=== PATIENT | female | born 1975 | race Two or more races ===

== ENCOUNTER → 2019-03-30 | Outpatient (REF) | payer BC ==
[2019-03-30 12:55] LABS: BASO % 0.3 % (0.0-1.0); EOS # 0.1 10^3/uL (0.0-0.50); EOS % 2.4 % (0.0-3.0); HEMOGLOBIN 13.6 g/dl (12.0-15.5); LYMPH # 2.2 10^3/uL (1.5-4.5); LYMPH % 37.8 % (24.0-44.0); MEAN CORPUSCULAR HEMOGLOBIN 30.3 pg (27.0-33.0); MEAN CORPUSCULAR HGB CONC 32.4 g/dl (32.0-36.5); MEAN CORPUSCULAR VOLUME 93.5 fl (80.0-96.0); MONO # 0.4 10^3/uL (0.0-0.8); MONO % 6.4 % (0.0-5.0); NEUTROPHILS % 52.9 % (36.0-66.0); PLATELET COUNT, AUTOMATED 229 10^3/uL (150-450); RED BLOOD COUNT 4.49 10^6/uL (4.00-5.40); WHITE BLOOD COUNT 5.8 10^3/uL (4.0-10.0)
[2019-03-30 13:07] LABS: ALBUMIN 3.6 GM/DL (3.2-5.2); ALT/SGPT 34 U/L (12-78); BILIRUBIN,TOTAL 0.4 MG/DL (0.2-1.0); BLOOD UREA NITROGEN 20 MG/DL (7-18); CALCIUM LEVEL 8.7 MG/DL (8.5-10.1); CARBON DIOXIDE LEVEL 28 MEQ/L (21-32); CHLORIDE LEVEL 109 MEQ/L (98-107); CHOLESTEROL LEVEL 171 MG/DL (<200); CREATININE FOR GFR 0.92 MG/DL (0.55-1.30); FREE T4 0.87 NG/DL (0.76-1.46); GLOMERULAR FILTRATION RATE > 60.0 (>58); GLUCOSE, FASTING 101 MG/DL (70-100); HDL CHOLESTEROL 74 MG/DL (>40); LDL CHOLESTEROL 87 MG/DL (<100); NON-HDL-C 97 MG/DL; POTASSIUM SERUM 4.6 MEQ/L (3.5-5.1); SODIUM LEVEL 142 MEQ/L (136-145); TOTAL PROTEIN 6.8 GM/DL (6.4-8.2); TRIGLYCERIDES LEVEL 52 MG/DL (<150)
== END ==
LOC: M SFHCADAM 08:06
PROVIDERS: ATTEND Family Medicine
DX: F41.8 Other specified anxiety disorders (principal); E66.01 Morbid (severe) obesity due to excess calories; Z68.41 Body mass index [BMI] 40.0-44.9, adult

== ENCOUNTER → 2020-02-15 | Outpatient (REF) | payer BC ==
[2020-02-15 17:25] LABS: ALBUMIN 3.9 GM/DL (3.2-5.2); ALT/SGPT 53 U/L (12-78); BILIRUBIN,TOTAL 0.3 MG/DL (0.2-1.0); BLOOD UREA NITROGEN 13 MG/DL (7-18); CALCIUM LEVEL 9.1 MG/DL (8.5-10.1); CARBON DIOXIDE LEVEL 29 MEQ/L (21-32); CHLORIDE LEVEL 106 MEQ/L (98-107); CHOLESTEROL LEVEL 194 MG/DL (<200); CHOLESTEROL RISK RATIO 3.031 (<5); CREATININE FOR GFR 0.83 MG/DL (0.55-1.30); GLOMERULAR FILTRATION RATE > 60.0 (>58); GLUCOSE, FASTING 90 MG/DL (70-100); HDL CHOLESTEROL 64 MG/DL (>40); LDL CHOLESTEROL 96 MG/DL (<100); NON-HDL-C 130 MG/DL; POTASSIUM SERUM 4.4 MEQ/L (3.5-5.1); SODIUM LEVEL 140 MEQ/L (136-145); TOTAL PROTEIN 7.2 GM/DL (6.4-8.2); TRIGLYCERIDES LEVEL 170 MG/DL (<150)
[2020-02-15 17:37] LABS: HEMOGLOBIN A1c 5.8 %
== END ==
LOC: M SFHCPLAZ 12:01
PROVIDERS: ATTEND Physician Assistant
DX: Z00.00 Encounter for general adult medical examination without abnormal findings (principal); Z13.220 Encounter for screening for lipoid disorders; Z13.1 Encounter for screening for diabetes mellitus

== ENCOUNTER → 2020-08-27 | Outpatient (CLI) | payer BC ==
--- NOTE | 2020-09-03 10:42 | REPMRS ---
Patient History The patient states she had a clinical breast exam in 08/2020. Family history of breast cancer at age 65 in mother, breast cancer at age 70 in maternal aunt. Taking hormonal contraceptives for 25 years. Digital Woman Screen Mammo: August 27, 2020 - Exam #: [id number] Bilateral CC and MLO view(s) were taken. Technologist: Norma Osorio, Technologist No prior studies available for comparison. FINDINGS: The breast tissue is almost entirely fat. The Volpara volumetric breast density category is: A. There is no evidence of dominant mass, architectural distortion, or grouped microcalcification typical of malignancy. 3-D tomosynthesis shows no additional findings. Assessment: BI-RADS/ACR category 1 mammogram. Negative Mammogram. Recommendation Breast MRI of both breasts in 6 months. Routine screening mammogram of both breasts in 1 year (for women over age 40). This patient's Lifetime Breast Cancer RIsk is estimated at 33.0 %. Annual screening Breast MRI scanniing is recommended for patient's whose lifetime risk assessment is over 20%. This mammogram was interpreted with the aid of an FDA-approved computer-aided dectection system. Electronically Signed By: Franklin Cisse MD 09/03/20 [id number]
== END ==
LOC: M WHC 15:15
PROVIDERS: ATTEND Advanced Practice Midwife
DX: Z12.31 Encounter for screening mammogram for malignant neoplasm of breast (principal); Z80.3 Family history of malignant neoplasm of breast

== ENCOUNTER → 2020-08-27 | Outpatient (CLI) | payer BC | LOC: M PLALAB 15:56 | PROVIDERS: ATTEND Advanced Practice Midwife | DX: Z15.09 Genetic susceptibility to other malignant neoplasm (principal); Z80.3 Family history of malignant neoplasm of breast ==

== ENCOUNTER → 2021-02-19 | Outpatient (REF) | payer BC ==
[2021-02-19 11:06] LABS: HEMATOCRIT 41.7 % (36.0-47.0); HEMOGLOBIN 13.8 g/dl (12.0-15.5); MEAN CORPUSCULAR HEMOGLOBIN 29.9 pg (27.0-33.0); MEAN CORPUSCULAR HGB CONC 33.1 g/dl (32.0-36.5); MEAN CORPUSCULAR VOLUME 90.5 fl (80.0-96.0); PLATELET COUNT, AUTOMATED 220 10^3/uL (150-450); RED BLOOD COUNT 4.61 10^6/uL (4.00-5.40); WHITE BLOOD COUNT 6.4 10^3/uL (4.0-10.0)
[2021-02-19 12:12] LABS: ALBUMIN 3.8 GM/DL (3.2-5.2); ALT/SGPT 38 U/L (12-78); BILIRUBIN,TOTAL 0.4 MG/DL (0.2-1.0); BLOOD UREA NITROGEN 16 MG/DL (7-18); CALCIUM LEVEL 8.9 MG/DL (8.5-10.1); CARBON DIOXIDE LEVEL 27 MEQ/L (21-32); CHLORIDE LEVEL 107 MEQ/L (98-107); CHOLESTEROL LEVEL 163 MG/DL (<200); CREATININE FOR GFR 0.89 MG/DL (0.55-1.30); GLOMERULAR FILTRATION RATE > 60.0 (>58); GLUCOSE, FASTING 91 MG/DL (70-100); HDL CHOLESTEROL 56 MG/DL (>40); LDL CHOLESTEROL 82 MG/DL (<100); NON-HDL-C 107 MG/DL; POTASSIUM SERUM 4.7 MEQ/L (3.5-5.1); SODIUM LEVEL 139 MEQ/L (136-145); TOTAL 25(OH) VITAMIN D 26.2 NG/ML (30.0-100.0); TRIGLYCERIDES LEVEL 127 MG/DL (<150)
[2021-02-19 13:06] LABS: HEMOGLOBIN A1c 5.5 %
[2021-02-20 15:07] LABS: H PYLORI SERUM QUANT IGM <9.0 units (0.0-8.9); H PYLORI SERUM QUANT IgG ABY 0.13 (0.00-0.79)
== END ==
LOC: M SFHCPLAZ 08:05
PROVIDERS: ATTEND Physician Assistant
DX: R73.01 Impaired fasting glucose (principal); Z13.220 Encounter for screening for lipoid disorders; R11.0 Nausea; R53.83 Other fatigue; R10.13 Epigastric pain

== ENCOUNTER → 2021-03-27 | Outpatient (REF) | payer BC | LOC: M SFHCPLAZ 13:10 | PROVIDERS: ATTEND Physician Assistant | DX: R30.0 Dysuria (principal) ==

== ENCOUNTER → 2021-04-01 | Outpatient (REF) | payer BC | LOC: M SFHCPLAZ 14:54 | PROVIDERS: ATTEND Physician Assistant | DX: R19.7 Diarrhea, unspecified (principal) ==

== ENCOUNTER → 2021-04-16 | Outpatient (CLI) | payer BC ==
[~2021-04-16] MED LIST: PROHANCE 279.3MG/ML 15ML VIAL As Ordered ONE; PROHANCE 279.3MG/ML 5ML VIAL As Ordered ONE
--- NOTE | 2021-04-16 12:50 | REP ---
INDICATION: HIGH RISK FOR BREAST CA. COMPARISON: Comparison mammography is from August 27, 2020. TECHNIQUE: Three Nisha MRI imaging was performed with a dedicated breast coil. Axial, coronal, and sagittal T1 and T2 weighted scans were obtained with and without fat saturation in the usual fashion. The study includes dynamically acquired post gadolinium-enhanced imaging with image subtraction. Maximum intensity projection and multi planar reformation imaging is included as well. This study is interpreted with the aid of SiTune, an FDA approved computer aided detection (CAD) software program, on a dedicated breast MRI workstation. The gadolinium enhancement dose is 20 mL of intravenous ProHance. FINDINGS: There is a minimal amount of fibroglandular tissue bilaterally corresponding with the mammographic pattern. There is minimal background parenchymal enhancement. There is no evidence of axillary lymphadenopathy or significant breast cystic change. High-resolution pre and post-contrast T1 and T2 weighted scans show no suspicious morphologic abnormality in either breast. Dynamically acquired sequential postcontrast images show no suspicious area of enhancement and washout kinetics in either breast to suggest malignancy. Subtraction images show no additional abnormality. IMPRESSION: BI-RADS category 1 negative bilateral breast MRI findings. <Electronically signed by Franklin Cisse > 04/16/21 [id number]
== END ==
LOC: M RAD 10:58
PROVIDERS: ATTEND Advanced Practice Midwife
DX: Z12.39 Encounter for other screening for malignant neoplasm of breast (principal)

== ENCOUNTER → 2021-04-29 | Outpatient (CLI) | payer BC ==
--- NOTE | 2021-04-29 11:39 | REP ---
INDICATION: PAIN IN LEFT HIP R/O LABRAL TEAR. COMPARISON: None. TECHNIQUE: Axial T1 and T2. Sagittal T2. Coronal T1, fat suppressed proton density, fat suppressed T2 and STIR. FINDINGS: The femoral heads are spherical in shape and symmetric in appearance. The hip joint spaces are symmetric and relatively well maintained. No abnormal focal increased or decreased signal is seen in the femoral or acetabular component of either hip. There is no hip joint effusion. The imaged portion of the SI joints show them to be within normal limits. There is no evidence of a mass or mass effect. The cortical and marrow signal seen throughout the pelvis is within normal limits. There is mild T2 hyper signal seen in the trochanteric tendono bursal region of each hip left greater than right. IMPRESSION: Mild to moderate bilateral trochanteric tendono bursitis left greater than right. <Electronically signed by Louis Cox > 04/29/21 [id number]
== END ==
LOC: M RAD 10:11
PROVIDERS: ATTEND Physician Assistant
DX: M71.551 Other bursitis, not elsewhere classified, right hip (principal); M71.552 Other bursitis, not elsewhere classified, left hip

== ENCOUNTER 2022-06-06 22:09 | Emergency (ER) | payer BC ==
[~2022-06-06] VITALS: Ht 170.2 cm; Wt 146.0 kg
[2022-06-06 22:10] VITALS: BP 138/72
[2022-06-06] MEDS ORDERED: PREG25CA PO (22:19)
[2022-06-06] MEDS ORDERED: FAMO10TA50 PO (22:19)
[2022-06-06] MEDS ORDERED: CITA20TA6 PO (22:19)
[2022-06-07] MEDS ORDERED: AMOX875T2 PO (19:37)
[2022-06-07] MEDS ORDERED: DIFL200T PO (19:38)
== END 2022-06-07 01:30 | disposition left against medical advice (07) ==
LOC: M ED 22:09
DX: Z53.21 Procedure and treatment not carried out due to patient leaving prior to being seen by health care provider (principal)

== ENCOUNTER 2022-06-07 13:37 | Emergency (ER) | payer BC ==
[~2022-06-07] VITALS: Ht 170.2 cm; Wt 144.9 kg
[~2022-06-07 13:37] MED LIST changes: +CITA20TA6 PO; +FAMO10TA50 PO; +PREG25CA PO; -PROHANCE 279.3MG/ML 15ML VIAL As Ordered ONE; -PROHANCE 279.3MG/ML 5ML VIAL As Ordered ONE
[2022-06-07 13:38] VITALS: BP 131/62
[2022-06-07 14:27] LABS: BASO % 0.4 % (0.0-1.0); EOS # 0.2 10^3/uL (0.0-0.5); EOS % 2.8 % (0.0-3.0); HEMATOCRIT 40.5 % (36.0-47.0); HEMOGLOBIN 13.7 g/dl (12.0-15.5); LYMPH # 2.7 10^3/uL (1.5-5.0); LYMPH % 35.8 % (24.0-44.0); MEAN CORPUSCULAR HEMOGLOBIN 30.8 pg (27.0-33.0); MEAN CORPUSCULAR HGB CONC 33.8 g/dl (32.0-36.5); MONO # 0.6 10^3/uL (0.0-0.8); MONO % 7.6 % (2.0-8.0); NEUTROPHILS % 53.1 % (36.0-66.0); PLATELET COUNT, AUTOMATED 211 10^3/uL (150-450); RED BLOOD COUNT 4.45 10^6/uL (4.00-5.40); WHITE BLOOD COUNT 7.5 10^3/uL (4.0-10.0)
[2022-06-07 14:56] LABS: HCG, SERUM QUALITATIVE NEGATIVE (NEGATIVE)
[2022-06-07 15:04] LABS: ALBUMIN 3.8 GM/DL (3.2-5.2); ALT/SGPT 36 U/L (12-78); BILIRUBIN,DIRECT 0.1 MG/DL (0.0-0.2); BILIRUBIN,TOTAL 0.6 MG/DL (0.2-1.0); BLOOD UREA NITROGEN 12 MG/DL (7-18); CALCIUM LEVEL 8.8 MG/DL (8.5-10.1); CARBON DIOXIDE LEVEL 25 MEQ/L (21-32); CHLORIDE LEVEL 111 MEQ/L (98-107); CREATININE FOR GFR 0.91 MG/DL (0.55-1.30); GLOMERULAR FILTRATION RATE > 60.0 (>58); GLUCOSE, FASTING 98 MG/DL (70-100); LIPASE 86 U/L (73-393); POTASSIUM SERUM 4.4 MEQ/L (3.5-5.1); SODIUM LEVEL 143 MEQ/L (136-145)
[2022-06-07] MEDS ORDERED: ISOVUE-370 76% 100ML VIAL As Ordered ONE (18:14)
[2022-06-07] MEDS ORDERED: AUGMENTIN 875 MG TAB PO ONE (19:35)
[2022-06-07] MEDS ORDERED: AMOX875T2 PO (19:37)
[2022-06-07] MEDS ORDERED: DIFL200T PO (19:38)
== END 2022-06-07 20:05 | disposition home or self-care (01) ==
LOC: M ED 13:37
DX: K35.80 Unspecified acute appendicitis (principal); G89.29 Other chronic pain; M54.9 Dorsalgia, unspecified; K21.9 Gastro-esophageal reflux disease without esophagitis; F41.9 Anxiety disorder, unspecified; Z79.899 Other long term (current) drug therapy
CPT/HCPCS: 36415; 74177; 80048; 80076; 81001; 83690; 84703; 85025; 87088; 87186; 99284; Q9967

== ENCOUNTER → 2022-06-16 | Outpatient (CLI) | payer BC ==
[~2022-06-16] MED LIST changes: +AMOX875T2 PO; +DIFL200T PO
[2022-06-16 13:38] LABS: APPEARANCE, URINE CLEAR (CLEAR); BACTERIA, URINE AUTO NEGATIVE (NEGATIVE); BILIRUBIN, URINE AUTO NEGATIVE (NEGATIVE); BLOOD, URINE BLOOD NEGATIVE (NEGATIVE); COLOR, URINE YELLOW (YELLOW); GLUCOSE, URINE (UA) AUTO NEGATIVE (NEGATIVE); KETONE, URINE AUTO NEGATIVE (NEGATIVE); LEUKOCYTE ESTERASE, URINE AUTO NEGATIVE (NEGATIVE); NITRITE, URINE AUTO NEGATIVE (NEGATIVE); PROTEIN, URINE AUTO NEGATIVE (NEGATIVE); RBC, URINE AUTO 2 /HPF (0-3); SPECIFIC GRAVITY URINE AUTO 1.014 (1.002-1.035); SQUAMOUS EPITHELIAL CELL UR AU 1 /HPF (0-6); UROBILINOGEN, URINE AUTO 0.2 mg/dL (0.0-2.0); WBC, URINE AUTO 2 /HPF (0-3)
[2022-06-16 15:23] LABS: BASO % 0.4 % (0.0-1.0); EOS # 0.2 10^3/uL (0.0-0.5); EOS % 2.9 % (0.0-3.0); HEMATOCRIT 40.5 % (36.0-47.0); HEMOGLOBIN 13.6 g/dl (12.0-15.5); LYMPH # 2.6 10^3/uL (1.5-5.0); LYMPH % 46.2 % (24.0-44.0); MEAN CORPUSCULAR HEMOGLOBIN 31.1 pg (27.0-33.0); MEAN CORPUSCULAR HGB CONC 33.6 g/dl (32.0-36.5); MEAN CORPUSCULAR VOLUME 92.7 fl (80.0-96.0); MONO # 0.4 10^3/uL (0.0-0.8); MONO % 6.3 % (2.0-8.0); NEUTROPHILS # 2.5 10^3/uL (1.5-8.5); NEUTROPHILS % 43.8 % (36.0-66.0); PLATELET COUNT, AUTOMATED 210 10^3/uL (150-450); RED BLOOD COUNT 4.37 10^6/uL (4.00-5.40); WHITE BLOOD COUNT 5.6 10^3/uL (4.0-10.0)
[2022-06-16 15:56] LABS: ALBUMIN 3.8 GM/DL (3.2-5.2); ALT/SGPT 42 U/L (12-78); BILIRUBIN,TOTAL 0.6 MG/DL (0.2-1.0); BLOOD UREA NITROGEN 12 MG/DL (7-18); CALCIUM LEVEL 9.1 MG/DL (8.5-10.1); CARBON DIOXIDE LEVEL 24 MEQ/L (21-32); CHLORIDE LEVEL 109 MEQ/L (98-107); CREATININE FOR GFR 0.83 MG/DL (0.55-1.30); GLOMERULAR FILTRATION RATE > 60.0 (>58); GLUCOSE, FASTING 81 MG/DL (70-100); NT-PRO BNP 35 PG/ML (<125); SODIUM LEVEL 139 MEQ/L (136-145); TOTAL PROTEIN 6.8 GM/DL (6.4-8.2)
== END ==
LOC: M PLALAB 11:33
PROVIDERS: ATTEND Physician Assistant
DX: K35.30 Acute appendicitis with localized peritonitis, without perforation or gangrene (principal); R60.9 Edema, unspecified; R35.0 Frequency of micturition

== ENCOUNTER → 2022-07-15 | Outpatient (CLI) | payer BC | LOC: M WHC 11:28 | PROVIDERS: ATTEND Advanced Practice Midwife | DX: Z12.31 Encounter for screening mammogram for malignant neoplasm of breast (principal) ==

== ENCOUNTER → 2022-07-15 | Outpatient (REF) | payer BC | LOC: M PLALAB 10:18 | PROVIDERS: ATTEND Advanced Practice Midwife | DX: Z12.4 Encounter for screening for malignant neoplasm of cervix (principal); R87.610 Atypical squamous cells of undetermined significance on cytologic smear of cervix (ASC-US) | CPT/HCPCS: 87624; G0123 ==

== ENCOUNTER → 2022-07-27 | Outpatient (CLI) | payer BC | LOC: M PLALAB 14:54 | PROVIDERS: ATTEND Physician Assistant | DX: R68.82 Decreased libido (principal) ==

== ENCOUNTER → 2022-11-02 | Outpatient (CLI) | payer BC ==
[~2022-11-02] MED LIST changes: +ALEV220T22 PO; +BUPR1TAB52 PO; +CETI-14 PO; +FAMO20TA5 PO; +GASTROGRAFIN SOLUTION 30ML As Ordered ONE; +ISOVUE-370 76% 100ML VIAL As Ordered ONE; +LEXA1TAB2 PO; +OXYC1TAB23 PO; +PREG75CA2 PO
== END ==
LOC: M RAD 15:04
PROVIDERS: ATTEND Physician Assistant
DX: R10.31 Right lower quadrant pain (principal)

== ENCOUNTER 2022-11-03 13:01 | Day surgery (SDC) | payer BC ==
[~2022-11-03] VITALS: Ht 170.2 cm; Wt 134.3 kg
[~2022-11-03 13:01] MED LIST changes: -ALEV220T22 PO; -BUPR1TAB52 PO; -CETI-14 PO; -FAMO20TA5 PO; -GASTROGRAFIN SOLUTION 30ML As Ordered ONE; -ISOVUE-370 76% 100ML VIAL As Ordered ONE; -LEXA1TAB2 PO; -OXYC1TAB23 PO; -PREG75CA2 PO
[2022-11-03] MEDS ORDERED: BUPR1TAB52 PO (13:25)
[2022-11-03] MEDS ORDERED: FAMO20TA5 PO (13:25)
[2022-11-03] MEDS ORDERED: PREG75CA2 PO (13:25)
[2022-11-03] MEDS ORDERED: LEXA1TAB2 PO (13:25)
[2022-11-03] MEDS ORDERED: NS 1,000 ML IV SCH (13:50)
[2022-11-03] MEDS ORDERED: PIPERACILLIN/TAZOBACTAM SOD 4.5 GM in D5W MINI-BAG PLUS 50 ML IV ONE (13:55)
[2022-11-03 14:40] LABS: BASO % 0.4 % (0.0-1.0); EOS # 0.2 10^3/uL (0.0-0.5); EOS % 3.1 % (0.0-3.0); HEMATOCRIT 43.8 % (36.0-47.0); HEMOGLOBIN 15.3 g/dl (12.0-15.5); LYMPH # 2.7 10^3/uL (1.5-5.0); LYMPH % 38.3 % (24.0-44.0); MEAN CORPUSCULAR HEMOGLOBIN 31.9 pg (27.0-33.0); MEAN CORPUSCULAR HGB CONC 34.9 g/dl (32.0-36.5); MEAN CORPUSCULAR VOLUME 91.4 fl (80.0-96.0); MONO # 0.4 10^3/uL (0.0-0.8); MONO % 5.7 % (2.0-8.0); NEUTROPHILS # 3.6 10^3/uL (1.5-8.5); NEUTROPHILS % 52.2 % (36.0-66.0); PLATELET COUNT, AUTOMATED 236 10^3/uL (150-450); RED BLOOD COUNT 4.79 10^6/uL (4.00-5.40)
[2022-11-03] MEDS ORDERED: CETI-14 PO (14:52)
[2022-11-03] MEDS ORDERED: ALEV220T22 PO (14:53)
[2022-11-03 14:54] LABS: LIPASE 28 U/L (12-53)
[2022-11-03] MEDS ORDERED: HOME MED LIST COMPLETE! XX SCH (14:55)
[2022-11-03 14:56] LABS: BILIRUBIN,DIRECT 0.1 MG/DL (<0.4)
[2022-11-03 14:58] LABS: ALKALINE PHOSPHATASE 110 U/L (46-116); ALT/SGPT 26 U/L (7.0-40); AST/SGOT 20 U/L (<34); BILIRUBIN,TOTAL 0.4 MG/DL (0.3-1.2); BLOOD UREA NITROGEN 21 MG/DL (9-23); CALCIUM LEVEL 8.8 MG/DL (8.5-10.1); CARBON DIOXIDE LEVEL 26 MMOL/L (20-31); CHLORIDE LEVEL 106 MMOL/L (98-107); CREATININE FOR GFR 0.88 MG/DL (0.55-1.30); GLOMERULAR FILTRATION RATE > 60.0 (>58); GLUCOSE, FASTING 86 MG/DL (60-100); POTASSIUM SERUM 3.9 MMOL/L (3.5-5.1); SODIUM LEVEL 140 MMOL/L (136-145); TOTAL PROTEIN 7.3 G/DL (5.7-8.2)
[2022-11-03 15:08] LABS: RSV AMPLIFICATION NEGATIVE (NEGATIVE)
[2022-11-03] MEDS ORDERED: LIDOCAINE 2% INJ 100 MG/5 ML SYRINGE As Ordered ONE ×2 (15:10→15:15)
[2022-11-03] MEDS ORDERED: MIDAZOLAM INJ 2MG/2ML VIAL (J2250 PER 1MG) As Ordered ONE ×2 (15:10→16:49)
[2022-11-03] MEDS ORDERED: propofoL 200 MG/20 ML VIAL As Ordered ONE ×2 (15:10→16:45)
[2022-11-03] MEDS ORDERED: fentaNYL 100 MCG/2 ML INJECTION As Ordered ONE (15:10)
[2022-11-03] MEDS ORDERED: ROCURONIUM BROMIDE 50MG/5ML VIAL As Ordered ONE ×2 (15:10→16:45)
[2022-11-03] MEDS ORDERED: ONDANSETRON 4MG 2ML VIAL As Ordered ONE ×2 (15:10→16:45)
[2022-11-03] MEDS ORDERED: LIDOCAINE 2% 100MG/5ML SDV (FOR ANES.) As Ordered ONE ×2 (15:15→16:45)
[2022-11-03] MEDS ORDERED: SUGAMMADEX SODIUM 500 MG/5 ML VIAL (BRIDION) As Ordered ONE ×2 (15:16→17:49)
[2022-11-03] MEDS ORDERED: LIDOCAINE 1% SDV 30ML VIAL As Ordered ONE (16:44)
[2022-11-03] MEDS ORDERED: BUPIVACAINE/EPIN 0.25% 30ML VIAL As Ordered ONE (16:44)
[2022-11-03] MEDS ORDERED: BUPIVACAINE HCL 0.25% 30ML VIAL As Ordered ONE (16:45)
[2022-11-03] MEDS ORDERED: fentaNYL 250 MCG/5 ML INJECTION As Ordered ONE (16:50)
[2022-11-03] MEDS ORDERED: KETOROLAC 60MG 2ML VIAL As Ordered ONE (16:51)
[2022-11-03] MEDS ORDERED: METOCLOPRAMIDE INJ 10MG/2ML VIAL As Ordered ONE (17:49)
[2022-11-03] MEDS ORDERED: HYDROmorphone HCL 2MG/ML 1ML VIAL As Ordered ONE (17:50)
[2022-11-03] MEDS ORDERED: ACETAMINOPHEN 1000MG 100ML IV BAG As Ordered ONE (17:57)
[2022-11-03] MEDS ORDERED: oxyCODONE 5MG TAB PO PRN (18:10)
[2022-11-03] MEDS ORDERED: LR 1,000 ML IV SCH (18:10)
[2022-11-03] MEDS ORDERED: ONDANSETRON 4MG 2ML VIAL IV PRN (18:10)
[2022-11-03] MEDS ORDERED: fentaNYL 100 MCG/2 ML INJECTION IV PRN (18:10)
[2022-11-03] MEDS ORDERED: HYDROMORPHONE HCL 0.5 MG/ 0.5 ML SYRINGE (J1170 PER 1) IV PRN (18:10)
[2022-11-03] MEDS ORDERED: METOCLOPRAMIDE INJ 10MG/2ML VIAL IV PRN (18:10)
[2022-11-03] MEDS ORDERED: OXYC1TAB23 PO (18:17)
[2022-11-03 18:59] VITALS: BP 135/62
== END 2022-11-03 19:39 | disposition home or self-care (01) ==
LOC: M ED 13:01 → M SDC 15:19
PROVIDERS: ATTEND Surgery
DX: K35.80 Unspecified acute appendicitis (principal); K21.9 Gastro-esophageal reflux disease without esophagitis; M54.50 Low back pain, unspecified; F41.9 Anxiety disorder, unspecified; Z79.899 Other long term (current) drug therapy
CPT/HCPCS: 44970; 80048; 80076; 83690; 85025; 87631; 88304; 93005; 93041; 99285; J0131; J1100; J1170; J1885; J2250; J2405; J2543; J2765; J3010

== ENCOUNTER → 2022-11-19 | Outpatient (REF) | payer BC ==
[~2022-11-19] MED LIST changes: +ALEV220T22 PO; +BUPR1TAB52 PO; +CETI-14 PO; +FAMO20TA5 PO; +LEXA1TAB2 PO; +OXYC1TAB23 PO; +PREG75CA2 PO
== END ==
LOC: M SFHCPLAZ 17:13
PROVIDERS: ATTEND Physician Assistant
DX: R30.0 Dysuria (principal)

== ENCOUNTER → 2022-12-28 | Outpatient (REF) | payer BC ==
[2022-12-28 19:12] LABS: APPEARANCE, URINE MANUAL HAZY (CLEAR)
[2022-12-28 19:13] LABS: BILIRUBIN, URINE MANUAL NEGATIVE (NEGATIVE); COLOR, URINE MANUAL LT YELLOW (YELLOW); GLUCOSE, URINE (UA) MANUAL NEGATIVE (NEGATIVE); KETONE, URINE MANUAL NEGATIVE (NEGATIVE); LEUKOCYTE ESTERASE, URINE MAN POSITIVE (NEGATIVE); NITRITE, URINE MANUAL POSITIVE (NEGATIVE); PH,URINE MAN 7.5 UNITS (5.0 - 7.0); PROTEIN, URINE MANUAL TRACE mg/dL (NEGATIVE); SPECIFIC GRAVITY,URINE MANUAL 1.015 (1.002-1.035); UROBILINOGEN, URINE MANUAL NORMAL (NORMAL)
[2022-12-28 19:14] LABS: BLOOD URINE MANUAL POSITIVE (NEGATIVE)
[2022-12-28 20:07] LABS: WBC, URINE TNTC /hpf (0-3)
[2022-12-28 20:09] LABS: BACTERIA, URINE LARGE AMOUNT; SQUAMOUS EPITHELIAL CELL URINE SMALL AMOUNT /hpf (SMALL AMT)
[2022-12-28 20:10] LABS: AMORPHOUS SEDIMENT, URINE SMALL AMOUNT (NEGATIVE); HYALINE CAST, URINE NONE SEEN /lpf (0-1)
== END ==
LOC: M SFHCPLAZ 16:58
PROVIDERS: ATTEND Physician Assistant
DX: N30.01 Acute cystitis with hematuria (principal)

== ENCOUNTER → 2023-01-13 | Outpatient (CLI) | payer BC ==
[~2023-01-13] MED LIST changes: +PROHANCE 279.3MG/ML 15ML VIAL ONE; +PROHANCE 279.3MG/ML 5ML VIAL ONE
== END ==
LOC: M PLAIMG 12:41
PROVIDERS: ATTEND Advanced Practice Midwife
DX: Z91.89 Other specified personal risk factors, not elsewhere classified (principal); Z12.31 Encounter for screening mammogram for malignant neoplasm of breast

== ENCOUNTER → 2023-05-13 | Outpatient (REF) | payer BC ==
[~2023-05-13] MED LIST changes: -PROHANCE 279.3MG/ML 15ML VIAL ONE; -PROHANCE 279.3MG/ML 5ML VIAL ONE
== END ==
LOC: M SFHCPLAZ 13:13
PROVIDERS: ATTEND Physician Assistant
DX: R39.9 Unspecified symptoms and signs involving the genitourinary system (principal)

== ENCOUNTER → 2023-07-13 | Outpatient (CLI) | payer BC ==
[2023-07-13 15:02] LABS: HEMATOCRIT 42.4 % (36.0-47.0); HEMOGLOBIN 13.8 g/dl (12.0-15.5); MEAN CORPUSCULAR HEMOGLOBIN 30.4 pg (27.0-33.0); MEAN CORPUSCULAR HGB CONC 32.5 g/dl (32.0-36.5); MEAN CORPUSCULAR VOLUME 93.4 fl (80.0-96.0); PLATELET COUNT, AUTOMATED 222 10^3/uL (150-450); RED BLOOD COUNT 4.54 10^6/uL (4.00-5.40); WHITE BLOOD COUNT 5.1 10^3/uL (4.0-10.0)
[2023-07-13 15:24] LABS: BLOOD UREA NITROGEN 22 MG/DL (9-23); CALCIUM LEVEL 9.1 MG/DL (8.5-10.1); CARBON DIOXIDE LEVEL 26 MMOL/L (20-31); CHLORIDE LEVEL 107 MMOL/L (98-107); CREATININE FOR GFR 0.87 MG/DL (0.55-1.30); GLOMERULAR FILTRATION RATE > 60.0 (>58); GLUCOSE, FASTING 102 MG/DL (60-100); POTASSIUM SERUM 4.8 MMOL/L (3.5-5.1); SODIUM LEVEL 141 MMOL/L (136-145)
== END ==
LOC: M PLALAB 09:05
PROVIDERS: ATTEND Internal Medicine Hematology
DX: Z01.818 Encounter for other preprocedural examination (principal)

== ENCOUNTER 2023-08-25 16:50 | Emergency (ER) | payer BC ==
[~2023-08-25] VITALS: Ht 170.2 cm; Wt 134.8 kg
[~2023-08-25 16:50] MED LIST changes: -PREG75CA2 PO; +PREG75CA3 PO
[2023-08-25] MEDS ORDERED: OMEP40CA5 (16:57)
[2023-08-25] MEDS ORDERED: VITMTA PO (16:57)
[2023-08-25] MEDS ORDERED: B-12100021 PO (16:57)
[2023-08-25] MEDS ORDERED: VITA200012 PO (16:57)
[2023-08-25] MEDS ORDERED: OYST1TAB PO (16:57)
[2023-08-25 17:36] LABS: BASO % 0.6 % (0.0-1.0); EOS # 0.2 10^3/uL (0.0-0.5); EOS % 4.5 % (0.0-3.0); HEMATOCRIT 39.8 % (36.0-47.0); HEMOGLOBIN 13.5 g/dl (12.0-15.5); LYMPH # 2.4 10^3/uL (1.5-5.0); MEAN CORPUSCULAR HGB CONC 33.9 g/dl (32.0-36.5); MEAN CORPUSCULAR VOLUME 91.5 fl (80.0-96.0); MONO # 0.5 10^3/uL (0.0-0.8); MONO % 8.4 % (2.0-8.0); NEUTROPHILS # 2.3 10^3/uL (1.5-8.5); NEUTROPHILS % 42.3 % (36.0-66.0); PLATELET COUNT, AUTOMATED 223 10^3/uL (150-450); RED BLOOD COUNT 4.35 10^6/uL (4.00-5.40); WHITE BLOOD COUNT 5.4 10^3/uL (4.0-10.0)
[2023-08-25 17:55] LABS: LIPASE 33 U/L (12-53)
[2023-08-25 17:57] LABS: ALKALINE PHOSPHATASE 112 U/L (46-116); ALT/SGPT 39 U/L (7.0-40); AST/SGOT 27 U/L (<34); BILIRUBIN,DIRECT 0.2 MG/DL (<0.4); BILIRUBIN,TOTAL 0.4 MG/DL (0.3-1.2); BLOOD UREA NITROGEN 13 MG/DL (9-23); CALCIUM LEVEL 9.2 MG/DL (8.5-10.1); CARBON DIOXIDE LEVEL 27 MMOL/L (20-31); CHLORIDE LEVEL 109 MMOL/L (98-107); CREATININE FOR GFR 0.86 MG/DL (0.55-1.30); GLOMERULAR FILTRATION RATE > 60.0 (>58); GLUCOSE, FASTING 81 MG/DL (60-100); POTASSIUM SERUM 4.4 MMOL/L (3.5-5.1); SODIUM LEVEL 143 MMOL/L (136-145); TOTAL PROTEIN 6.7 G/DL (5.7-8.2)
[2023-08-25 18:11] LABS: HCG, SERUM QUALITATIVE NEGATIVE (NEGATIVE)
[2023-08-25] MEDS ORDERED: ACETAMINOPHEN *IV* 1,000 MG in IV 1 EA IV ONE (19:50)
[2023-08-25] MEDS ORDERED: ISOVUE-370 76% 100ML VIAL As Ordered ONE (20:06)
[2023-08-25] MEDS: GASTROGRAFIN SOLUTION 30ML PO SCH ×2 (20:12→20:58)
[2023-08-25 21:00] VITALS: BP 131/66; TEMP 98.1; O2SAT 99
[2023-08-26] MEDS ORDERED: MILKSUS3 PO (00:06)
[2023-08-26] MEDS ORDERED: MOM 30ML SUSPENSION UDC PO ONE (00:10)
[2023-08-26] MEDS ORDERED: NITROFURANTOIN (MACROBID) 100 MG CAP PO ONE (00:25)
== END 2023-08-26 00:49 | disposition home or self-care (01) ==
LOC: M ED 16:50
DX: R10.9 Unspecified abdominal pain (principal); K59.00 Constipation, unspecified; N39.0 Urinary tract infection, site not specified; K21.9 Gastro-esophageal reflux disease without esophagitis; M54.9 Dorsalgia, unspecified; Z79.899 Other long term (current) drug therapy
CPT/HCPCS: 74177; 80048; 80076; 81001; 83690; 84703; 85025; 87086; 96374; 99284; J0131; Q9963; Q9967

== ENCOUNTER → 2023-11-02 | Outpatient (CLI) | payer BC ==
[~2023-11-02] MED LIST changes: +B-12100021 PO; +MILKSUS3 PO; +OMEP40CA5; +OYST1TAB PO; +VITA200012 PO; +VITMTA PO
== END ==
LOC: M WHC 13:17
PROVIDERS: ATTEND Advanced Practice Midwife
DX: Z12.31 Encounter for screening mammogram for malignant neoplasm of breast (principal)

== ENCOUNTER → 2024-06-06 | Outpatient (CLI) | payer BC ==
[2024-06-06 11:56] LABS: BASO % 0.6 % (0.0-1.0); EOS # 0.1 10^3/uL (0.0-0.5); EOS % 2.4 % (0.0-3.0); HEMATOCRIT 40.4 % (36.0-47.0); HEMOGLOBIN 13.6 g/dl (12.0-15.5); LYMPH # 2.2 10^3/uL (1.5-5.0); LYMPH % 44.5 % (24.0-44.0); MEAN CORPUSCULAR HEMOGLOBIN 30.8 pg (27.0-33.0); MEAN CORPUSCULAR HGB CONC 33.7 g/dl (32.0-36.5); MEAN CORPUSCULAR VOLUME 91.4 fl (80.0-96.0); MONO # 0.4 10^3/uL (0.0-0.8); MONO % 7.4 % (2.0-8.0); NEUTROPHILS # 2.2 10^3/uL (1.5-8.5); NEUTROPHILS % 44.9 % (36.0-66.0); PLATELET COUNT, AUTOMATED 183 10^3/uL (150-450); RED BLOOD COUNT 4.42 10^6/uL (4.00-5.40)
[2024-06-06 12:10] LABS: HEMOGLOBIN A1c 5.1 % (4.0-6.0)
[2024-06-06 12:32] LABS: FERRITIN 96.6 NG/ML (7.3-270.7)
[2024-06-06 12:33] LABS: TOTAL 25(OH) VITAMIN D 61.2 NG/ML (20.0-100.0)
[2024-06-06 12:34] LABS: FOLATE 15.2 NG/ML (>5.4); LUTEINIZING HORMONE 32.4 mIU/ML; THYROID STIMULATING HORMONE 1.363 uIU/ML (0.55-4.78)
[2024-06-06 12:35] LABS: FREE T4 0.93 NG/DL (0.89-1.76); IRON (FE) 91 UG/DL (50-170); PERCENT SATURATION 28.6 % (13.2-45.0); TOTAL IRON BINDING CAPACITY 318 UG/DL (250-425)
[2024-06-06 12:36] LABS: ALBUMIN 3.8 G/DL (3.2-5.2); ALKALINE PHOSPHATASE 114 U/L (46-116); ALT/SGPT 22 U/L (7.0-40); AST/SGOT 8 U/L (<34); BILIRUBIN,TOTAL 0.5 MG/DL (0.3-1.2); BLOOD UREA NITROGEN 16 MG/DL (9-23); CARBON DIOXIDE LEVEL 27 MMOL/L (20-31); CHLORIDE LEVEL 111 MMOL/L (98-107); CHOLESTEROL LEVEL 179 MG/DL (<200); CHOLESTEROL RISK RATIO 3.24 (<5); CREATININE FOR GFR 0.84 MG/DL (0.55-1.30); GLOMERULAR FILTRATION RATE > 60.0 (>58); GLUCOSE, FASTING 88 MG/DL (60-100); HDL CHOLESTEROL 55.1 MG/DL (>40); LDL CHOLESTEROL 107.5 MG/DL (<100); MAGNESIUM LEVEL 2.2 MG/DL (1.8-2.4); NON-HDL-C 123.9 MG/DL; POTASSIUM SERUM 4.4 MMOL/L (3.5-5.1); SODIUM LEVEL 145 MMOL/L (136-145); TOTAL PROTEIN 6.2 G/DL (5.7-8.2); TRIGLYCERIDES LEVEL 82 MG/DL (<150); VITAMIN B12 LEVEL 618 PG/ML (211-911)
[2024-06-11 20:58] LABS: TESTOSTERONE FREE (DIRECT) 1.8 pg/mL (0.1-6.4)
== END ==
LOC: M PLALAB 07:20
PROVIDERS: ATTEND Physician Assistant
DX: Z00.00 Encounter for general adult medical examination without abnormal findings (principal)

== ENCOUNTER → 2024-06-21 | Outpatient (CLI) | payer BC ==
[2024-06-21 15:46] LABS: BASO % 0.3 % (0.0-1.0); EOS # 0.2 10^3/uL (0.0-0.5); EOS % 2.6 % (0.0-3.0); HEMATOCRIT 38.6 % (36.0-47.0); HEMOGLOBIN 13.4 g/dl (12.0-15.5); LYMPH # 2.8 10^3/uL (1.5-5.0); MEAN CORPUSCULAR HEMOGLOBIN 31.9 pg (27.0-33.0); MEAN CORPUSCULAR HGB CONC 34.7 g/dl (32.0-36.5); MEAN CORPUSCULAR VOLUME 91.9 fl (80.0-96.0); MONO # 0.4 10^3/uL (0.0-0.8); NEUTROPHILS # 2.5 10^3/uL (1.5-8.5); NEUTROPHILS % 42.9 % (36.0-66.0); PLATELET COUNT, AUTOMATED 177 10^3/uL (150-450); WHITE BLOOD COUNT 5.9 10^3/uL (4.0-10.0)
== END ==
LOC: M PLALAB 13:45
PROVIDERS: ATTEND Physician Assistant
DX: R79.89 Other specified abnormal findings of blood chemistry (principal)

== ENCOUNTER 2024-07-12 09:30 | Day surgery (SDC) | payer BC ==
[~2024-07-12] VITALS: Ht 170.2 cm; Wt 105.1 kg
[~2024-07-12 09:30] MED LIST changes: +BUPR1TAB56 PO; +MULTTAB61 PO; +NS 1,000 ML IV ONE; -OMEP40CA5; +OMEP40CA5 PO; +propofoL 200 MG/20 ML VIAL As Ordered ONE
[2024-07-12 12:28] VITALS: BP 130/62; O2SAT 99
== END 2024-07-12 12:28 | disposition home or self-care (01) ==
LOC: M OPP 09:30
PROVIDERS: ATTEND Surgery
DX: Z12.11 Encounter for screening for malignant neoplasm of colon (principal); D12.5 Benign neoplasm of sigmoid colon; G47.9 Sleep disorder, unspecified; Z79.84 Long term (current) use of oral hypoglycemic drugs; Z79.899 Other long term (current) drug therapy; Z91.048 Other nonmedicinal substance allergy status

== ENCOUNTER → 2024-07-16 | Outpatient (CLI) | payer BC ==
[~2024-07-16] MED LIST changes: -NS 1,000 ML IV ONE; -propofoL 200 MG/20 ML VIAL As Ordered ONE
== END ==
LOC: M PLALAB 10:23
PROVIDERS: ATTEND Physician Assistant
DX: R79.89 Other specified abnormal findings of blood chemistry (principal)

== ENCOUNTER → 2024-11-08 | Outpatient (CLI) | payer BC | LOC: M WHC 08:52 | PROVIDERS: ATTEND Advanced Practice Midwife | DX: Z12.31 Encounter for screening mammogram for malignant neoplasm of breast (principal) ==

== ENCOUNTER → 2025-01-01 | Outpatient (CLI) | payer BC ==
[2025-01-01 14:38] LABS: C REACTIVE PROTEIN QUANTITATIV 1.2 MG/DL (<1.0)
[2025-01-01 15:36] LABS: RHEUMATOID FACTOR QUANT 7.2 IU/ML (<14)
== END ==
LOC: M PLALAB 10:12
PROVIDERS: ATTEND Nurse Practitioner Family
DX: R53.83 Other fatigue (principal)

== ENCOUNTER → 2025-02-07 | Outpatient (CLI) | payer BC | LOC: M PLAIMG 10:23 | PROVIDERS: ATTEND Nurse Practitioner Family | DX: M16.0 Bilateral primary osteoarthritis of hip (principal); S73.192A Other sprain of left hip, initial encounter; M85.68 Other cyst of bone, other site; M70.62 Trochanteric bursitis, left hip; N32.89 Other specified disorders of bladder ==

== ENCOUNTER → 2025-03-28 | Outpatient (CLI) | payer BC ==
[~2025-03-28] MED LIST changes: +BUPR-670 PO; -BUPR1TAB52 PO; -BUPR1TAB56 PO; +BUPR200T45 PO; -PREG25CA PO; +PREG25CA63 PO
[2025-03-28 14:04] LABS: ESTRADIOL 29.2 PG/ML; THYROID STIMULATING HORMONE 1.559 uIU/ML (0.55-4.78)
[2025-03-28 14:06] LABS: FREE T4 1.05 NG/DL (0.89-1.76)
== END ==
LOC: M PLALAB 10:31
PROVIDERS: ATTEND Advanced Practice Midwife
DX: R68.82 Decreased libido (principal)

== ENCOUNTER → 2025-06-12 | Outpatient (CLI) | payer BC ==
[2025-06-12 13:05] LABS: PLATELET COUNT, AUTOMATED 185 10^3/uL (150-450)
[2025-06-12 13:16] LABS: ESTIMATED AVERAGE GLUCOSE 105.0 MG/DL (60-110)
[2025-06-12 13:35] LABS: IRON (FE) 118 UG/DL (50-170)
[2025-06-12 13:36] LABS: ALT/SGPT 19 U/L (7.0-40); AST/SGOT 16 U/L (<34); CALCIUM LEVEL 8.7 MG/DL (8.5-10.1); CARBON DIOXIDE LEVEL 29 MMOL/L (20-31); CHLORIDE LEVEL 105 MMOL/L (98-107); CHOLESTEROL LEVEL 185 MG/DL (<200); CHOLESTEROL RISK RATIO 2.51 (<5); CREATININE FOR GFR 0.79 MG/DL (0.55-1.30); GLOMERULAR FILTRATION RATE > 90.0 (>58); LDL CHOLESTEROL 93.7 MG/DL (<100); MAGNESIUM LEVEL 2.1 MG/DL (1.8-2.4); NON-HDL-C 111.5 MG/DL; PERCENT SATURATION 36.9 % (13.2-45.0); POTASSIUM SERUM 4.7 MMOL/L (3.5-5.1); SODIUM LEVEL 143 MMOL/L (136-145); TRIGLYCERIDES LEVEL 89 MG/DL (<150)
[2025-06-12 13:37] LABS: VITAMIN B12 LEVEL 521 PG/ML (211-911)
== END ==
LOC: M PLALAB 08:52
PROVIDERS: ATTEND Nurse Practitioner Family
DX: Z90.3 Acquired absence of stomach [part of] (principal); K21.9 Gastro-esophageal reflux disease without esophagitis; R73.03 Prediabetes; Z13.220 Encounter for screening for lipoid disorders

== ENCOUNTER → 2025-07-11 | Outpatient (CLI) | payer BC | LOC: M PLALAB 11:48 | PROVIDERS: ATTEND Advanced Practice Midwife | DX: F52.0 Hypoactive sexual desire disorder (principal) ==